=== PATIENT | male | born 1960 | race Caucasian/White ===

== ENCOUNTER 2017-02-13 15:02 | Emergency (ER) | payer SELFPAY ==
[2017-02-13 15:11] VITALS: BP 167/90
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
--- NOTE | 2017-02-13 17:54 | RAD ---
Indication: Right hand pain. 4 views of the right hand are reviewed. There is no fracture or dislocation. No other bone or joint abnormality is identified. IMPRESSION: NO FRACTURE OF THE RIGHT HAND IS NOTED.
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
[2017-02-13] MEDS ORDERED: Ibuprofen TAB* 600 MG PO ONE (18:36)
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
== END 2017-02-13 18:53 | disposition home or self-care (01) ==
LOC: ED 15:02
DX: S00.83XA Contusion of other part of head, initial encounter (principal); S60.222A Contusion of left hand, initial encounter; S60.221A Contusion of right hand, initial encounter; Y04.2XXA Assault by strike against or bumped into by another person, initial encounter; Y93.9 Activity, unspecified; Y92.149 Unspecified place in prison as the place of occurrence of the external cause
CPT/HCPCS: 70486; 99282; A9270-GY